=== PATIENT | female | born 1965 | race African-American/Black ===

== ENCOUNTER → 2021-08-16 | Outpatient (CLI) | payer BC ==
[~2021-08-16] MED LIST: ALEVE220 M1 PO; APAP650 PO; ATORVASTATIN CA10 MG PO; BUPROPION XL300 MG PO; FAMCYCLOVIR 50500 M1 PO; FLONASE 0.05%50 MCG NARES; GABAPENTIN 100100 MG PO; LORATIDINE 10 M10 M1 PO; MUCINEX1200 MG PO; NYSTATIN15 G2 TOP; OLOPATADINE HCL5 ML OPHTHALMIC; TRESIBA FL100 UNIT/1 SUBQ; TRULICITY1.5 MG/0.5 SUBQ; VALSARTAN-HCTZ1 EAC1 PO; XIGDUO XR 10 M1 EAC1 PO
== END ==
LOC: LAB 08:32
PROVIDERS: ATTEND Student in an Organized Health Care Education/Training Program
DX: Z01.812 Encounter for preprocedural laboratory examination (principal); Z20.822 Contact with and (suspected) exposure to COVID-19

== ENCOUNTER 2021-08-19 06:23 | Day surgery (SDC) | payer BC ==
[~2021-08-19] VITALS: Ht 162.6 cm; Wt 139.3 kg
--- NOTE | ~2021-08-19 | O ---
[facility] [place] [place] [address] OPERATIVE REPORT Name: STEPHEN MOLINA Room #: 150-2 [facility] M.R.#: [id number] Admission: 08/19/21 Attend Phys: Tita Mcduffie, Discharge: Date of : 67 Report #: [id number] THIS REPORT FOR: cc: Lyudmila Kasier MD, Liliana E. MD Deardorff,Tita Mar MD ~ DATE OF SERVICE: 08/19/2021 PREOPERATIVE DIAGNOSES: 1. Right carpal tunnel syndrome. 2. Right index finger trigger finger. POSTOPERATIVE DIAGNOSES: 1. Right carpal tunnel syndrome. 2. Right index finger trigger finger. PROCEDURE PERFORMED: 1. Right endoscopic carpal tunnel. 2. Right index finger A1 josie release. SURGEON: Tita Mcduffie M.D. TYPE OF ANESTHESIA: General mask anesthesia. ESTIMATED BLOOD LOSS: Minimal. TOURNIQUET TIME: 60 minutes. COMPLICATIONS: None. CONDITION: Stable. DISPOSITION: To recovery room. INDICATIONS: The patient is a 56-year-old female with the above-mentioned diagnosis. She elects for operative treatment. Risks, benefits, alternatives and complications were discussed including but not limited to infection, damage to vessels, nerves, incomplete relief or worsening of any symptoms. Informed consent was obtained, the correct extremity was identified and labeled myself after verbal confirmation of the patient as well as visual confirmation and signed informed consent. DESCRIPTION OF PROCEDURE: The patient was brought back to the operating room and placed on the operating table in the supine position. She received preoperative antibiotics. Tourniquet was placed over padding. The patient's right lower extremity was sterilely prepped and draped in the usual fashion. [address] [address] OPERATIVE REPORT Name: STEPHEN MOLINA Room #: 150-2 [facility] M.R.#: [id number] Admission: 08/19/21 Attend Phys: Tita Mcduffie, Discharge: Date of : 67 Report #: [id number] timeout was taken to verify correct patient, operative procedure, operative site, all concurred. The arm was elevated, exsanguinated and the tourniquet inflated. Next, an oblique incision was made at the level of A1 josie on the right index finger. Dissection was carried down through extremity with tenotomy scissors. A1 josie was easily identified and incised. Careful attention was placed to avoid damage to the structures. The finger was taken through a passive range of motion. There is no locking or clicking. The tendons glided smoothly. Next, attention was placed to the carpal tunnel. Transverse incision was made from the most proximal to distal wrist crease in line with the ulnar border of the palmaris longus tendon. Dissection was carried down through fascia with tenotomy scissors. The antebrachial fascia was identified and incised. An oblique incision was made at the distal edge of the carpal tunnel. The fat was elevated off the fascia. The fascia was carefully incised. Next, a [place] device was placed through the carpal tunnel and any synovial tissue was elevated off the undersurface of the transverse carpal ligament. Next, a blunt trocar and cannula was inserted with the wrist in maximal extension and digital compression distally. Blunt trocar was removed. The camera was inserted and the nice transverse fibers of the of the undersurface of the transverse carpal ligament was easily identified at the entire length. A hook blade was brought in distally and the transverse carpal ligament transected proximally, all the way from the antebrachial fascia of the forearm all the way through the fat in the palm. The camera and cannula were drawn and visualized and visualized and cut in the transverse carpal ligament. Next, each wound was explored. The release all the way from the antebrachial fascia all the way through the fat in the palm. The nerve looked to be in excellent condition. Wounds were thoroughly irrigated. Skin was closed with 4-0 nylon suture. Wounds dressed with Adaptic and sterile gauze and was placed in a bulky dressing. All fingers were pink and brisk capillary refill at the conclusion of case. All sponge and needle counts were correct. The patient transferred to postoperative recovery room in stable condition. By: [id number] Tita Mcduffie MD /sav
--- NOTE | 2021-08-19 07:41 | EKG ---
[address] [address] ELECTROCARDIOGRAM REPORT Name: STEPHEN MOLINA Room #: 150-2 [facility].#: [id number] Admission: 08/19/21 Attend Phys: Tita Mcduffie, Discharge: Date of : 67 Report #: [id number] [facility] Test Date: 2021-08-19 Test Time: 07:02:40 Pat Name: STEPHEN MOLINA Department: Room: 150 2 Gender: F Alarm Installation Technician: BEATRIZ : 1965 Requested By: Tita Mcduffie Order Number: [id number] MD: Momo Benton Measurements Intervals [place] Rate: 71 P: 36 MT: 143 QRS: 23 QRSD: 75 T: 133 QT: 490 QTc: 533 Interpretive Statements Sinus rhythm Low voltage, precordial leads Nonspecific T abnrm, anterolateral leads Prolonged QT interval No previous ECG available for comparison Electronically Signed On 08-19-2021 7:41:02 DISABILITY AIDE by Momo Benton [email or web address] <ELECTRONICALLY SIGNED> By: Momo Benton MD, [facility] 08/19/21 0741 1 1 Momo Benton MD, FACC /EPI
[2021-08-19 08:43] VITALS: BP 109/72
[2021-08-19 09:01] VITALS: BP 109/72
[2021-08-19 12:08] LABS: CALCIUM 9.2 mg/dL (8.5-10.1); CREATININE 1.1 mg/dL (0.6-1.0); POTASSIUM 3.9 mmol/L (3.5-5.1)
== END 2021-08-19 12:11 | disposition home or self-care (01) ==
LOC: OR → TBA 06:23 → OR 06:23
PROVIDERS: ATTEND Orthopaedic Surgery Hand Surgery
DX: G56.01 Carpal tunnel syndrome, right upper limb (principal); M65.321 Trigger finger, right index finger; I10 Essential (primary) hypertension; E11.9 Type 2 diabetes mellitus without complications; K21.9 Gastro-esophageal reflux disease without esophagitis; G47.30 Sleep apnea, unspecified; E78.5 Hyperlipidemia, unspecified; F32.9 Major depressive disorder, single episode, unspecified; Z98.890 Other specified postprocedural states; Z90.711 Acquired absence of uterus with remaining cervical stump; Z90.49 Acquired absence of other specified parts of digestive tract; Z79.899 Other long term (current) drug therapy
CPT/HCPCS: 50010; 50101; 50386; 56526; 56969; 57006; 57091; 57179; 62110; 62900; 70005